=== PATIENT | male | born 1985 | race Caucasian/White ===

== ENCOUNTER → 2024-08-08 | Day surgery (SDC) | payer MEDICAID, OTHER ==
[~2024-08-08] MED LIST: Midazolam 1 MG/ML 2 ML SDV ONE; Propofol 200 MG/20 ML SDV ONE; fentaNYL 100 MCG/2 ML SDV ONE
[2024-08-08] MEDS: Sodium Chloride 0.9% 1,000 ML IV SCH (15:30)
[2024-08-08 16:11] VITALS: BP 121/69; PULSE 61
== END ==
LOC: JP.ED 11:27 → JP.SDS 14:55
PROVIDERS: ATTEND Surgery
DX: K20.90 Esophagitis, unspecified without bleeding (principal); I10 Essential (primary) hypertension
CPT/HCPCS: 43239; 88305; 99283; 99284; J2250; J2704; J3010; J7030; 00731-QZ

== ENCOUNTER 2024-09-06 06:25 | Day surgery (SDC) | payer OTHER ==
[2024-09-06] MEDS: Lactated Ringers 1,000 ML IV SCH (06:40)
[2024-09-06] MEDS ORDERED: Propofol 200 MG/20 ML SDV ONE (07:10)
[2024-09-06] MEDS ORDERED: Midazolam 1 MG/ML 2 ML SDV ONE (07:11)
[2024-09-06] MEDS ORDERED: fentaNYL 100 MCG/2 ML SDV ONE (07:11)
[2024-09-06 11:33] VITALS: BP 140/83; PULSE 66
== END 2024-09-06 11:00 | disposition home or self-care (01) ==
LOC: JP.SDS 06:25
PROVIDERS: ATTEND Surgery
DX: Z12.11 Encounter for screening for malignant neoplasm of colon (principal); D12.3 Benign neoplasm of transverse colon; I10 Essential (primary) hypertension
CPT/HCPCS: 00811-QZ; 88305; J2250; J2704; J3010; J7120